=== PATIENT | male | born 1935 | race Caucasian/White ===

== ENCOUNTER → 2016-09-01 | Outpatient (CLI) | payer MEDICARE ==
[~2016-09-01] MED LIST: ALBUAER3 INH; ARGI500T PO; ASPI81TA81 PO; BENZ100 PO; CHEL50TA PO; CHOL50006 PO; CHOL50008 PO; COLA100C3 PO; FLEE10EN RECTAL; FLEEENE3 RECTAL; FOLI1CAP7 PO; HYDR5SYP10 PO; LEVA500T PO; LOVA10TA PO; MAGN100T2 PO; OSEL75 PO; POTA99TA PO; PRED50 PO; UBIQ100C PO; VITA10007 PO; VITATAB11
== END ==
LOC: PLAB 08:27
PROVIDERS: ATTEND Family Medicine
DX: E55.9 Vitamin D deficiency, unspecified (principal)
CPT/HCPCS: 36415; 82306

== ENCOUNTER 2016-09-12 07:07 | Emergency (ER) | payer MEDICARE ==
[~2016-09-12] VITALS: Ht 190.5 cm; Wt 109.0 kg
[~2016-09-12 07:07] MED LIST changes: -ALBUAER3 INH; -BENZ100 PO; -FLEE10EN RECTAL; -FLEEENE3 RECTAL; -HYDR5SYP10 PO; -LEVA500T PO; -OSEL75 PO; -PRED50 PO
[2016-09-12 07:13] VITALS: BP 131/58; PULSE 62; RESP 24; TEMP 99.3; O2SAT 93
[2016-09-12] MEDS ORDERED: PRED50 PO (07:38)
[2016-09-12] MEDS ORDERED: ALBUAER3 INH (07:38)
[2016-09-12] MEDS ORDERED: BENZ100 PO (07:38)
[2016-09-12] MEDS ORDERED: predniSONE 50 MG TAB PO ONE (07:45)
[2016-09-12] MEDS ORDERED: RESP: ALBUTEROL 2.5 MG/IPRATROPIUM 0.5 MG NEB (SCH) NEB ONE (07:45)
--- NOTE | 2016-09-12 07:56 | PD ---
HPI Chief Complaint: Respiratory Symptoms Time Seen by Provider: 07:23 Travel History International Travel<30 days: No Contact w/Intl Traveler<30days: No Traveled to known affect area: No History of Present Illness HPI This is an 80-year-old male who presents to the emergency department with 1 week of shortness of breath and productive cough with yellow sputum, constant, moderate severity, keeping him from sleeping, not improve despite starting prednisone 2 days ago. Patient has not been on any antibiotic. He follows with Dr. Alex lakhani for pulmonary problems but doesn't know what his diagnosis is. In our system in the past he's had a restrictive lung pattern on pulmonary function tests. Patient says that he has chest discomfort and abdominal discomfort every time he coughs but denies any leg swelling or orthopnea. PFSH Past Medical History Arthritis: No Asthma: Yes Autoimmune Disease: No Blood Disorders: No Anxiety: No Depression: No Heart Rhythm Problems: No Cancer: No Cardiac Catheterization: Yes (DR FARLEY) Cardiovascular Problems: Yes (CAD, CARDIAC STENTS) High Cholesterol: No Chemotherapy: No Chest Pain: Yes Congestive Heart Failure: No COPD: No Cerebrovascular Accident: No Diabetes: No Diminished Hearing: No Endocrine: No Gastrointestinal Disorders: Yes (PAST HX GERD) GERD: Yes (occ) Glaucoma: No Genitourinary: Yes (FREQUENCY) Headaches: No Hepatitis: No Hiatal Hernia: No Heparin Induced Thrombocytopen: No Hypertension: No Immune Disorder: No Implanted Vascular Access Dvce: Yes Kidney Stones: No Medical other: Yes (RECENT COURSE OF PREDNISONE --HAVING LUNG STUDIES 03/2016) Musculoskeletal: Yes (LUMBAR DISCOMFORT) Neurologic: No Psychiatric: No Reproductive: No Respiratory: Yes (ENVIRONMENTAL ALLERGIES, CONGESTION) Migraines: No Myocardial Infarction: Yes (REMOTE PAST ) Radiation Therapy: No Renal Failure: No Seizures: No Sickle Cell Disease: No Sleep Apnea: No Thyroid Disease: No Triglycerides - High: Yes Ulcer: No Tetanus Vaccination: Unknown PNEUMOCCOCAL Vaccine (Year): 1 Past Surgical History Abdominal Surgery: Yes (APPENDECTOMY, RIGHT INGUINAL HERNIA REPAIR, LAPROSCOPY WITH COLON RESECTIO) AICD: No Appendectomy: Yes (REMOTE PAST) Arteriovenous Shunt: No Body Medical Devices: x3 CARDIAC STENTS Cardiac Surgery: No Cholecystectomy: No Coronary Stent: Yes (X 3 IN 08/23 DR FARLEY) Ear Surgery: No Endocrine Surgery: No Eye Surgery: Yes (adrianna cataract surgery, LASIK) Genitourinary Surgery: No Gynecologic Surgery: No Insulin Pump: No Joint Replacement: No Neurologic Surgery: No Oral Surgery: No Pacemaker: No Thoracic Surgery: No Other Surgery: Yes (ABD HERNIA REPAIR AND APPY REMOTE PAST) Social History Alcohol Use: Yes (RARELY) Tobacco Use: No Substance Use: No Allergies-Medications (Allergen,Severity, Reaction): Coded Allergies: No Known Allergies (Verified , 09/12/16) Reported Meds & Prescriptions Reported Meds & Active Scripts Active Reported Proair Hfa 8.5 GM Inh (Albuterol Sulfate) 90 Mcg/Act Aer 2 Puff INH Q4-6H PRN 108 mcg/actuation Prednisone 50 Mg Tab 50 Mg PO DAILY Tessalon Perles (Benzonatate) 100 Mg Cap 200 Mg PO TID PRN Zinc (Zinc Gluconate) 50 Mg Tab 50 Cap PO DAILY Vitamin D (Cholecalciferol) 5,000 Unit Tab 5,000 Cap PO DAILY Vitamin B Complex (B-Complex Vitamins) 1 Tab Ubiquinol 100 Mg Cap 100 Cap PO DAILY Potassium 99 Mg Tab 99 Mg PO DAILY Magnesium Citrate 100 Mg Tab 100 Mg PO TID PRN Lovastatin 10 Mg Tab 10 Mg PO DAILY Folic Acid 800 Mcg Cap 800 Mcg PO DAILY Vitamin D3 (Cholecalciferol) 5,000 Unit Tab 5,000 Units PO DAILY Aspir-81 (Aspirin) 81 Mg Tabdr 81 Mg PO DAILY Vitamin C (Ascorbic Acid) 1,000 Mg Tab 1,000 Mg PO Arginine 500 Mg Tab 500 Cap PO DAILY Colace (Docusate Sodium) 100 Mg Cap 100 Mg PO BID Review of Systems Except as stated in HPI: all other systems reviewed are Neg Physical Exam Narrative GENERAL:Well appearing, no acute distress SKIN: Warm and dry. HEAD: Atraumatic. Normocephalic. EYES: Pupils equal and round. No injection or drainage. ENT: Moist mucous membranes NECK: Trachea midline. CARDIOVASCULAR: Regular rate and rhythm. No murmur appreciated. Trace edema. RESPIRATORY: Rales in the left lower lung base, no accessory muscle use, speaking full sentences GASTROINTESTINAL: Abdomen soft, non-tender, nondistended. MUSCULOSKELETAL: No obvious deformities. NEUROLOGICAL: Awake and alert. No obvious cranial nerve deficits. Moving all extremities. PSYCHIATRIC: Appropriate mood and affect; insight and judgment normal. Data Data Last Documented VS Vital Signs Date Time Temp Pulse Resp B/P Pulse Ox O2 Delivery O2 Flow Rate FiO2 2/28/17 07:33 61 18 97 09/12/16 07:13 99.3 131/58 Orders Chest, Pa & Lat (09/12/16 ) Albuterol-Ipratropium Neb (Duoneb Neb) (09/12/16 07:45) Prednisone (Deltasone) (09/12/16 07:45) Influenzae A/B Antigen (09/12/16 07:33) MDM Medical Decision Making Medical Screen Exam Complete: Yes Emergency Medical Condition: Yes Interpretation(s) Temperature is 99.3 Pulse ox oximetry 93-97% Chest x-ray: Interstitial prominence with patchy bilateral airspace disease Differential Diagnosis Bronchitis, pneumonia, influenza, pulmonary fibrosis Narrative Course This is an 80-year-old male who has a history of restrictive lung disease who presents to the emergency department with increasing shortness of breath and cough over the past week not improve despite being on prednisone for 2 days. His oxygen saturation was 97% when I assessed him. He does have some crackles on the left lung base. Influenza test was sent and was positive. Chest x-ray demonstrates bilateral airspace disease. I think he appears well enough to be discharged home. Plan for Tamiflu, antibiotic for possible superimposed pneumonia, and continued prednisone. I asked him to follow up with his primary care physician for recheck later this week. Diagnosis Primary Impression: Influenza, pneumonia Patient Instructions: General Instructions Additional Instructions: If you develop severe chest pain, shortness of breath, sweating, lightheadedness , dizziness or difficulty breathing return to the emergency department immediately. Followup with your primary care physician in 2-3 days if your symptoms are not resolved. Med/Other Pt SpecificInfo: Prescription(s) given Scripts Hydrocodone W/ Homatropine (Hydrocodone/Homatropine 5-1.5 mg/5Ml)1 Syp Syp5 Ml PO Q6HR PRN (COUGH) #100 ML Prov:Marylin Javier MD 09/12/16 Levofloxacin (Levaquin)500 Mg Kzt360 Mg PO DAILY 7 Days Ref 0 Prov:Marylin Javier MD 09/12/16 Oseltamivir (Tamiflu)75 Mg Cap75 Mg PO BID 5 Days Ref 0 Prov:Marylin Javier MD 09/12/16 Disposition: 01 DISCHARGE HOME Condition: Stable Highet,Marylin H. MD Sep 12, 2016 07:56
--- NOTE | 2016-09-12 08:32 | RADHPO ---
EXAM DATE/TIME: 09/12/2016 08:13 [facility] COMPARISON: No previous studies available for comparison. INDICATIONS : Congestion, cough, chest pain, short of breath. MEDICAL HISTORY : Cardiovascular disease. SURGICAL HISTORY : Coronary artery stent. ENCOUNTER: Initial ACUITY: 4 - 6 days PAIN SCORE: 2/10 LOCATION: Bilateral chest FINDINGS: PA and lateral views of the chest demonstrate interstitial prominence. There is patchy alveolar airsp yasmeen disease in the upper lobes and lower lobes. The cardiomediastinal contours are unremarkable. Os seous structures are intact. CONCLUSION: 1. Interstitial prominence with patchy bilateral airspace disease. Acute on chronic condition cannot be excluded. Jacinto Gabriel MD on September 12, 2016 at 8:25 Board Certified Radiologist. This report was verified electronically.
[2016-09-12] MEDS ORDERED: HYDR5SYP10 PO (08:47)
[2016-09-12] MEDS ORDERED: LEVA500T PO (08:47)
[2016-09-12] MEDS ORDERED: OSEL75 PO (08:47)
== END 2016-09-12 09:04 | disposition home or self-care (01) ==
LOC: PHED 07:07
DX: J09.X2 Influenza due to identified novel influenza A virus with other respiratory manifestations (principal); J18.9 Pneumonia, unspecified organism
CPT/HCPCS: 71020; 87804; 94664; 99285; J7512

== ENCOUNTER → 2016-09-21 | Outpatient (CLI) | payer MEDICARE ==
[~2016-09-21] MED LIST changes: +ALBUAER3 INH; +BENZ100 PO; +FLEE10EN RECTAL; +FLEEENE3 RECTAL; +HYDR5SYP10 PO; +LEVA500T PO; +OSEL75 PO; +PRED50 PO
== END ==
LOC: PLAB 10:09
PROVIDERS: ATTEND Internal Medicine
DX: J20.9 Acute bronchitis, unspecified (principal)
CPT/HCPCS: 87070; 87205

== ENCOUNTER 2016-10-31 09:41 | Emergency (ER) | payer MEDICARE ==
[~2016-10-31] VITALS: Ht 190.5 cm; Wt 107.7 kg
[~2016-10-31 09:41] MED LIST changes: -FLEE10EN RECTAL; -FLEEENE3 RECTAL
[2016-10-31 09:47] VITALS: BP 130/78; PULSE 81; RESP 18; TEMP 97.7; O2SAT 96
[2016-10-31] MEDS ORDERED: FLEEENE3 RECTAL (10:03)
[2016-10-31] MEDS ORDERED: FLEE10EN RECTAL (10:04)
--- NOTE | 2016-10-31 10:05 | PD ---
HPI Chief Complaint: GI Complaint Time Seen by Provider: 09:51 Travel History International Travel<30 days: No Contact w/Intl Traveler<30days: No Traveled to known affect area: No History of Present Illness HPI 80-year-old male presents with constipation for the past 5 days. He denies any abdominal pain, nausea, vomiting or other concurrent complaints. He has taken stool softener and magnesium citrate without relief. He has not discussed this with his primary care physician or his colorectal specialist since he was here in the emergency department before for constipation. He notes last time he had a colonoscopy right before he was constipated. PFSH Past Medical History Arthritis: No Asthma: Yes Autoimmune Disease: No Blood Disorders: No Anxiety: No Depression: No Heart Rhythm Problems: No Cancer: No Cardiac Catheterization: Yes (DR FARLEY) Cardiovascular Problems: Yes (CAD, CARDIAC STENTS) High Cholesterol: No Chemotherapy: No Chest Pain: Yes Congestive Heart Failure: No COPD: No Cerebrovascular Accident: No Diabetes: No Diminished Hearing: No Endocrine: No Gastrointestinal Disorders: Yes (PAST HX GERD) GERD: Yes (occ) Glaucoma: No Genitourinary: Yes (FREQUENCY) Headaches: No Hepatitis: No Hiatal Hernia: No Heparin Induced Thrombocytopen: No Hypertension: No Immune Disorder: No Implanted Vascular Access Dvce: Yes Kidney Stones: No Musculoskeletal: Yes (LUMBAR DISCOMFORT) Neurologic: No Psychiatric: No Reproductive: No Respiratory: Yes (ENVIRONMENTAL ALLERGIES, CONGESTION) Migraines: No Myocardial Infarction: Yes (REMOTE PAST ) Radiation Therapy: No Renal Failure: No Seizures: No Sickle Cell Disease: No Sleep Apnea: No Thyroid Disease: No Triglycerides - High: Yes Ulcer: No PNEUMOCCOCAL Vaccine (Year): 1 Past Surgical History Abdominal Surgery: Yes (APPENDECTOMY, RIGHT INGUINAL HERNIA REPAIR, LAPROSCOPY WITH COLON RESECTIO) AICD: No Appendectomy: Yes (REMOTE PAST) Arteriovenous Shunt: No Body Medical Devices: x3 CARDIAC STENTS Cardiac Surgery: No Cholecystectomy: No Coronary Stent: Yes (X 3 IN 08/23 DR FARLEY) Ear Surgery: No Endocrine Surgery: No Eye Surgery: Yes (adrianna cataract surgery, LASIK) Genitourinary Surgery: No Gynecologic Surgery: No Insulin Pump: No Joint Replacement: No Neurologic Surgery: No Oral Surgery: No Pacemaker: No Thoracic Surgery: No Other Surgery: Yes (ABD HERNIA REPAIR AND APPY REMOTE PAST) Social History Alcohol Use: Yes (RARELY) Tobacco Use: No Substance Use: No Allergies-Medications (Allergen,Severity, Reaction): Coded Allergies: No Known Allergies (Verified , 10/31/16) Reported Meds & Prescriptions Reported Meds & Active Scripts Active Fleet Bisacodyl Enema (Bisacodyl) 10 Mg/37 Ml Enem 37 Ml RECTAL ONCE PRN Reported Proair Hfa 8.5 GM Inh (Albuterol Sulfate) 90 Mcg/Act Aer 2 Puff INH Q4-6H PRN 108 mcg/actuation Ubiquinol 100 Mg Cap 100 Cap PO DAILY Magnesium Citrate 100 Mg Tab 100 Mg PO TID PRN Lovastatin 10 Mg Tab 10 Mg PO DAILY Colace (Docusate Sodium) 100 Mg Cap 100 Mg PO BID Review of Systems Except as stated in HPI: all other systems reviewed are Neg Physical Exam Narrative GENERAL: Well-nourished, well-developed patient. Well-appearing SKIN: Warm and dry. HEAD: Normocephalic and atraumatic. EYES: No injection or drainage. ENT: No nasal drainage noted. NECK: Supple, trachea midline. CARDIOVASCULAR: Regular rate and rhythm RESPIRATORY: no increased effort. No accessory muscle use. GASTROINTESTINAL: Abdomen soft, non-tender, nondistended. RECTAL EXAM: Performed with coke drawer hand and after permission. No large external hemorrhoid or fissure, stool is brown, non-bloody without fecal impaction NEUROLOGICAL: Awake and alert. Moves all extremities. Normal speech. Data Data Last Documented VS Vital Signs Date Time Temp Pulse Resp B/P Pulse Ox O2 Delivery O2 Flow Rate FiO2 10/31/16 09:47 97.7 81 18 130/78 96 MDM Medical Decision Making Medical Screen Exam Complete: Yes Emergency Medical Condition: Yes Medical Record Reviewed: Yes (pmh confirmed) Differential Diagnosis Constipation, impaction, doubt obstruction Narrative Course Patient without impaction on rectal exam. Patient has no abdominal pain, vomiting or signs of obstruction. Patient agrees to [id number] constipation treatment and was given prescription for enema to use additionally that is also available [id number]. He agrees to this plan of care with close follow-up with his specialist Diagnosis Primary Impression: Constipation Qualified Code: K59.00 - Constipation, unspecified constipation type Patient Instructions: General Instructions Additional Instructions: follow with your colorectal specialist tommorrow, return as needed, use enema as directed Med/Other Pt SpecificInfo: Prescription(s) given Scripts Bisacodyl Enema (Fleet Bisacodyl Enema)10 Mg/37 Ml Enem37 Ml RECTAL ONCE PRN ( CONSTIPATION) #1 BOTTLE Ref 0 Prov:Michelle Simpson MD 10/31/16 Disposition: 01 DISCHARGE HOME Condition: Stable Michelle Simpson MD Oct 31, 2016 10:05
== END 2016-10-31 10:17 | disposition home or self-care (01) ==
LOC: PHED 09:41
DX: K59.00 Constipation, unspecified (principal); J45.909 Unspecified asthma, uncomplicated; Z95.5 Presence of coronary angioplasty implant and graft; I25.10 Atherosclerotic heart disease of native coronary artery without angina pectoris; I25.2 Old myocardial infarction
CPT/HCPCS: 99283

== ENCOUNTER → 2017-02-15 | Outpatient (CLI) | payer MEDICARE ==
[~2017-02-15] MED LIST changes: -ARGI500T PO; -ASPI81TA81 PO; -BENZ100 PO; -CHEL50TA PO; -CHOL50006 PO; -CHOL50008 PO; +FLEE10EN RECTAL; -FOLI1CAP7 PO; -HYDR5SYP10 PO; -LEVA500T PO; -OSEL75 PO; -POTA99TA PO; -PRED50 PO; -VITA10007 PO; -VITATAB11
[2017-02-15 13:44] LABS: ANION GAP 8 MEQ/L (5-15); AST (GOT) 19 U/L (15-37); BICARBONATE 22.6 MEQ/L (21.0-32.0); BLOOD UREA NITROGEN 14 MG/DL (7-18); CHLORIDE 110 MEQ/L (98-107); GLOMERULAR FILTRATION RATE 87 ML/MIN (>89); GLUCOSE,FASTING 92 MG/DL (74-99); POTASSIUM 3.7 MEQ/L (3.5-5.1); SODIUM (NA) 141 MEQ/L (136-145)
[2017-02-15 14:00] LABS: ALKALINE PHOSPHATASE 41 U/L (45-117); ALT (GPT) 28 U/L (12-78); HDL CHOLESTEROL 57.3 MG/DL (40.0-60.0); LDL CHOLESTEROL 71 MG/DL (0-99); LDL CHOLESTEROL DIRECT 79 MG/DL (0-99)
[2017-02-15 14:03] LABS: CREATINE KINASE 43 U/L (39-308)
== END ==
LOC: PLAB 07:58
PROVIDERS: ATTEND Internal Medicine Interventional Cardiology
DX: R06.02 Shortness of breath (principal); E78.5 Hyperlipidemia, unspecified; Z79.899 Other long term (current) drug therapy
CPT/HCPCS: 36415; 80053; 80061; 82248; 82550; 83721

== ENCOUNTER 2017-03-13 09:12 | Day surgery (SDC) | payer MEDICARE ==
[~2017-03-13] VITALS: Ht 190.5 cm; Wt 107.9 kg
[2017-03-13] VITALS (8 sets, daily range): BP systolic 107–131; BP diastolic 59–75; PULSE 18–64; RESP 18; TEMP 97.3–97.8; O2SAT 94–96
[2017-03-13] MEDS ORDERED: IOHEXOL 350 MG/ML 100 ML BTL (for Cath Lab) OTHER ONE (09:13)
[2017-03-13] MEDS ORDERED: ASPIRIN 81 MG CHEW TAB PO ONE (10:00)
[2017-03-13] MEDS ORDERED: NS 1000P @30 MLS/HR (KVO) IV SCH (10:00)
[2017-03-13] MEDS ORDERED: VITA100T50 (10:04)
[2017-03-13] MEDS ORDERED: VITA250T3 PO (10:04)
[2017-03-13] MEDS ORDERED: VITA400C5 (10:04)
[2017-03-13] MEDS ORDERED: ROSU10 PO (10:04)
[2017-03-13] MEDS ORDERED: VITA1000 PO (10:04)
[2017-03-13] MEDS ORDERED: ASPI81CH CHEW (10:04)
[2017-03-13 10:08] LABS: AUTOMATED NEUTROPHIL # 3.7 TH/MM3 (1.8-7.7); BASOPHIL # 0.2 TH/MM3 (0-0.2); BASOPHIL % 2.4 % (0.0-2.0); EOSINOPHIL # 0.3 TH/MM3 (0-0.4); EOSINOPHIL % 5.2 % (0.0-4.0); HEMATOCRIT 46.9 % (39.0-51.0); HEMO FLAGS DIFF FINAL; LYMPH % 24.7 % (9.0-44.0); LYMPHOCYTE # 1.5 TH/MM3 (1.0-4.8); MEAN CELL VOLUME 92.2 FL (80.0-100.0); MEAN CORPUSCULAR HEMOGLOBIN 30.6 PG (27.0-34.0); MEAN CORPUSCULAR HGB CONC 33.2 % (32.0-36.0); NEUT % 58.7 % (16.0-70.0); PLATELET COUNT 153 TH/MM3 (150-450); RED BLOOD COUNT 5.09 MIL/MM3 (4.50-5.90); RED CELL DISTRIBUTION WIDTH 13.3 % (11.6-17.2); WHITE BLOOD COUNT 6.2 TH/MM3 (4.0-11.0)
[2017-03-13 10:16] LABS: PROTHROMBIN TIME - PATIENT 11.4 SEC (9.8-11.6)
[2017-03-13 10:22] LABS: BICARBONATE 26.3 MEQ/L (21.0-32.0)
[2017-03-13] MEDS ORDERED: HEPARIN-NS/PF INJ 1,000 ML ONE (11:35)
[2017-03-13] MEDS ORDERED: HEPARIN SODIUM - IV 10,000 UNITS/10 ML VIAL ONE (12:17)
[2017-03-13] MEDS ORDERED: CLOPIDOGREL 300 MG TAB ONE (12:32)
[2017-03-13] MEDS ORDERED: TIROFIBAN INFUSION INJ 250 ML IV ONE (12:33)
[2017-03-13] MEDS ORDERED: ASPIRIN 81 MG CHEW TAB ONE (12:36)
[2017-03-13] MEDS: TIROFIBAN INFUSION INJ 250 ML IV SCH ×2 (12:41→22:10)
[2017-03-13] MEDS ORDERED: SODIUM CHLORIDE 0.9% FLUSH 10 ML FLUSH PRN (12:45)
[2017-03-13] MEDS ORDERED: CLOPIDOGREL 300 MG TAB PO ONE (12:45)
[2017-03-13] MEDS ORDERED: MISC INFORMATION XX ONE (12:45)
[2017-03-13] MEDS ORDERED: BACITRACIN OINT 0.9 GM PKT TOP ONE (12:45)
[2017-03-13] MEDS: SODIUM CHLORIDE 0.9% FLUSH 10 ML FLUSH SCH (20:34)
--- NOTE | 2017-03-13 22:44 | MA ---
cc: ELEUTERIO FARLEY M.D. DATE: 03/13/2017 PROCEDURE PERFORMED: Right heart catheterization. Left heart catheterization. Left ventriculography. Coronary angiography. PCI bare metal stent of the mid left circumflex vessel. INDICATION: Coronary artery disease, new onset. Severe dyspnea on exertion. CHF. Moderate size fixed defect, reversible defect in the anterior apical wall, apical hypokinesis, decreased in ejection fraction on gated SPECT from 45% to 41%, anginal equivalent, unstable angina. [place] [employer] Society, class 3 angina, [place] Heart Association, class 3 to 4 congestive heart failure. Peripheral vascular disease, history of myocardial infarction, dyspnea. PROCEDURE: The patient was brought to the Cardiac Catheterization Laboratory, prepped and draped in the usual sterile fashion. 10 cc of 1% lidocaine was used to locally anesthetize the right common femoral artery. A 4 Irish sheath was placed in the right common femoral artery. 5 Irish sheath in the right common femoral vein. RIGHT HEART CATHETERIZATION: Right heart catheterization was performed first with the following findings: The pulmonary capillary wedge pressure was 13/12/12, PA pressure 33/11/21. RV pressure 33/2/7. RA pressure 8/7/5. Femoral artery sat on room air 98%, pulmonary artery sat on room air 79.3%, RA sat on room air 78.4%. Cardiac output by RUTH 7.1 liters per minute. Cardiac index by RUTH 3.0 liters per meter square per minute, SVR was 986.7 dynes. LEFT HEART CATHETERIZATION: Left heart catheterization was then performed with a 4-Irish JR-4 and JL-5 diagnostic catheter with the following findings: The LV pressure 135/5/8. Ejection fraction is 45 to 50%. Apical wall is severely hypokinetic. Right coronary artery is dominant, has mild diffuse disease in the proximal segment, up to 20% angiographically, mild diffuse disease in the mid segment up to 30% angiographically. The left main coronary artery has no significant disease angiographically. The left circumflex vessel has a complex 90% stenosis spanning a medium size marginal vessel which has no ostial disease. Beyond the lesion there is a second obtuse marginal vessel that is medium is size coming off the mid AV groove left circ and then they are two small posterolateral arteries distally. The LAD is transapical. Stents in the proximal segment are widely patent. There is mild In-stent stenosis in the proximal segment up to 20% angiographically. First and second diagonal arteries are small to medium-sized vessels with no significant obstructive disease. 6-Irish sheath was exchanged for the 4-Irish sheath, 70 units per kilo of heparin, ACT 275, 6 Irish XP 4.0 guide, 0.014 Prowater guide wire and a 309 Integrity stent was used to directly stent the mid left circumflex vessel, one inflation at 9 atmospheres for 20 seconds. The stenosis went from 90% to 0% with TAWNYA-3 flow. Note: There was no jailing of the marginal vessel with TAWNYA-3 flow into the vessel. Also note, post procedure the vessel diameter of the first and second obtuse marginal vessel improved. CONCLUSION: New onset cardiac symptoms of severe dyspnea on exertion, anginal equivalent. [place] [employer], class 3 angina, [place] Heart Association class 3 to 4 congestive heart failure. Culprit 90% stenosis in the mid left circumflex vessel supplying two medium size marginal vessels and three distal posterolateral arteries. Low normal to LV systolic function, ejection fraction 45 to 50% with severe hypokinesis of the apex. Mildly elevated right heart pressures as detailed above. Successful direct PCI bare metal stent of the mid left circumflex vessel from 90% to 0% with TAWNYA-3 flow. Recommend Plavix 600 milligrams p.o. load and then 75 milligrams a day for 12 to 15 months. Aspirin 162 milligrams daily. Aggrastat drip per protocol. Continue Crestor 10 milligrams daily. Eleuterio Farley MD Gertrude/LUIS DANIEL /12:34 PM /10:06 PM
[2017-03-14] VITALS (13 sets, daily range): BP systolic 99–131; BP diastolic 58–67; PULSE 61–80; RESP 16; TEMP 97.6–98.8; O2SAT 94–98
[2017-03-14] MEDS ORDERED: ONDANSETRON HCL 4 MG/2 ML VIAL IV PUSH PRN (05:45)
[2017-03-14 06:53] LABS: BASOPHIL # 0.1 TH/MM3 (0-0.2); BASOPHIL % 0.9 % (0.0-2.0); EOSINOPHIL # 0.2 TH/MM3 (0-0.4); EOSINOPHIL % 2.3 % (0.0-4.0); HEMATOCRIT 45.7 % (39.0-51.0); HEMO FLAGS DIFF FINAL; LYMPHOCYTE # 0.8 TH/MM3 (1.0-4.8); MEAN CELL VOLUME 92.6 FL (80.0-100.0); MEAN CORPUSCULAR HEMOGLOBIN 31.8 PG (27.0-34.0); MEAN CORPUSCULAR HGB CONC 34.3 % (32.0-36.0); MONO % 7.4 % (0.0-8.0); NEUT % 78.4 % (16.0-70.0); PLATELET COUNT 140 TH/MM3 (150-450); RED BLOOD COUNT 4.93 MIL/MM3 (4.50-5.90); RED CELL DISTRIBUTION WIDTH 13.3 % (11.6-17.2); WHITE BLOOD COUNT 7.6 TH/MM3 (4.0-11.0)
[2017-03-14 07:04] LABS: BICARBONATE 25.7 MEQ/L (21.0-32.0); POTASSIUM 3.7 MEQ/L (3.5-5.1)
[2017-03-14] MEDS ORDERED: CLOPIDOGREL 75 MG TAB PO SCH (09:00)
[2017-03-14] MEDS ORDERED: ASPIRIN 81 MG CHEW TAB PO SCH (09:00)
[2017-03-14] MEDS: SODIUM CHLORIDE 0.9% FLUSH 10 ML FLUSH SCH (10:04)
[2017-03-14] MEDS ORDERED: PLAV75TA29 PO (11:15)
--- NOTE | 2017-03-14 16:58 | EKG ---
Date Performed: 03/13/2017 Time Performed: 13:08:02 PTAGE: 81 years EKG: Sinus rhythm with PAC(s) with borderline 1st degree A-V block. Severe right axis deviation Right bundle branch bl ock Since previous tracing, no significant change noted Abnormal ECG PREVIOUS TRACING : 02/18/2016 06.52 DOCTOR: Karen Viera Interpretating Date/Time 03/14/2017 16:57:27
--- NOTE | 2017-03-14 16:58 | EKG ---
Date Performed: 03/14/2017 Time Performed: 06:24:24 PTAGE: 81 years EKG: Sinus rhythm INDETERMINATE AXIS RIGHT BUNDLE BRANCH BLOCK POSSIBLE ANTEROSEPTAL MYOCARDIAL INFARCTION , OF INDETE RMINATE AGE Since previous tracing, no significant change noted ABNORMAL ECG PREVIOUS TRACING : 03/13/2017 13.08 DOCTOR: Karen Viera Interpretating Date/Time 03/14/2017 16:57:38
== END 2017-03-14 11:51 | disposition home or self-care (01) ==
LOC: HDIC 09:12 → HDOC 09:12 → HDIC 15:17 → HCIN 15:17 → HCIS 16:08 → HDOC 03-14 11:51
PROVIDERS: ATTEND Internal Medicine Interventional Cardiology
DX: I25.110 Atherosclerotic heart disease of native coronary artery with unstable angina pectoris (principal); I50.9 Heart failure, unspecified; I25.2 Old myocardial infarction; I73.9 Peripheral vascular disease, unspecified; I65.29 Occlusion and stenosis of unspecified carotid artery; J84.10 Pulmonary fibrosis, unspecified; E78.00 Pure hypercholesterolemia, unspecified
CPT/HCPCS: 80048; 82550; 82810; 85002; 85025; 85610; 92928; 93005; 93460; C1769; C1876; C1887; C1893; J1644; J2405; J3246; J7030; 85347; Q9967

== ENCOUNTER 2017-04-19 16:52 | Emergency (ER) | payer MEDICARE ==
[~2017-04-19] VITALS: Ht 190.5 cm; Wt 108.0 kg
[~2017-04-19 16:52] MED LIST changes: -ALBUAER3 INH; +ASPI81CH CHEW; -COLA100C3 PO; -FLEE10EN RECTAL; -LOVA10TA PO; -MAGN100T2 PO; +PLAV75TA29 PO; +ROSU10 PO; -UBIQ100C PO; +VITA1000 PO; +VITA100T50; +VITA250T3 PO; +VITA400C5
[2017-04-19 16:54] VITALS: BP 144/71; PULSE 64; RESP 16; TEMP 97.6; O2SAT 95
[2017-04-19] MEDS ORDERED: ALBUAER3 INH (17:12)
--- NOTE | 2017-04-19 17:19 | PD ---
HPI Chief Complaint: Complaint Time Seen by Provider: 17:06 Travel History International Travel<30 days: No Contact w/Intl Traveler<30days: No Traveled to known affect area: No History of Present Illness HPI This patient urinated a short while before coming to the emergency room and noticed blood in it. When he urinated this morning he was fine. He has no history of hematuria. He takes both aspirin and Plavix and had a cardiac stent placed 3 weeks ago. No presyncopal symptoms. Symptoms severity is mild. No alleviating factors. duration 1 hour PFSH Past Medical History Arthritis: No Asthma: Yes Autoimmune Disease: No Blood Disorders: No Anxiety: No Depression: No Heart Rhythm Problems: No Cancer: No Cardiac Catheterization: Yes (DR FARLEY) Cardiovascular Problems: Yes (CAD, CARDIAC STENTS) High Cholesterol: No Chemotherapy: No Chest Pain: Yes Congestive Heart Failure: No COPD: No Cerebrovascular Accident: No Coronary Artery Disease: Yes Diabetes: No Diminished Hearing: No Endocrine: No Gastrointestinal Disorders: Yes (PAST HX GERD) GERD: Yes Glaucoma: No Genitourinary: Yes (FREQUENCY) Headaches: No Hepatitis: No Hiatal Hernia: No Heparin Induced Thrombocytopen: No Hypertension: No Immune Disorder: No Implanted Vascular Access Dvce: Yes Kidney Stones: No Musculoskeletal: Yes (LUMBAR DISCOMFORT) Neurologic: No Psychiatric: No Reproductive: No Respiratory: Yes (pulmonary fibrosis) Migraines: No Myocardial Infarction: Yes Radiation Therapy: No Renal Failure: No Seizures: No Sickle Cell Disease: No Sleep Apnea: No Thyroid Disease: No Triglycerides - High: Yes Ulcer: No PNEUMOCCOCAL Vaccine (Year): 1 Past Surgical History Abdominal Surgery: Yes (APPENDECTOMY, RIGHT INGUINAL HERNIA REPAIR, LAPROSCOPY WITH COLON RESECTIO) AICD: No Appendectomy: Yes (REMOTE PAST) Arteriovenous Shunt: No Body Medical Devices: x3 CARDIAC STENTS Cardiac Surgery: No Cholecystectomy: No Coronary Stent: Yes (X 3 IN 08/23, x 1> 03/2017) Ear Surgery: No Endocrine Surgery: No Eye Surgery: Yes (adrianna cataract surgery, LASIK) Genitourinary Surgery: No Gynecologic Surgery: No Insulin Pump: No Joint Replacement: No Neurologic Surgery: No Oral Surgery: No Pacemaker: No Thoracic Surgery: No Other Surgery: Yes (ABD HERNIA REPAIR AND APPY REMOTE PAST) Social History Alcohol Use: Yes (RARELY) Tobacco Use: No Substance Use: No Allergies-Medications (Allergen,Severity, Reaction): Coded Allergies: No Known Allergies (Verified , 04/19/17) Reported Meds & Prescriptions Reported Meds & Active Scripts Active Reported Proair Hfa 8.5 GM Inh (Albuterol Sulfate) 90 Mcg/Act Aer 2 Puff INH QHS PRN 108 mcg/actuation Plavix (Clopidogrel Bisulfate) 75 Mg Tab 75 Mg PO DAILY Vitamin C (Ascorbic Acid) 250 Mg Tab 250 Mg PO E-400 (Vitamin E) 400 Unit Cap Vitamin K (Phytonadione) 100 Mcg Tab Vitamin D-1000 (Cholecalciferol) 1,000 Unit Tab 1,000 Units PO DAILY Crestor (Rosuvastatin Calcium) 10 Mg Tab 10 Mg PO DAILY Aspirin 81 Mg Chew 81 Mg CHEW DAILY Review of Systems General / Constitutional: No: Fever Eyes: No: Visual changes HENT: No: Headaches Cardiovascular: No: Chest Pain or Discomfort Respiratory: No: Shortness of Breath Gastrointestinal: No: Abdominal Pain Genitourinary: Positive: Hematuria, No: Dysuria Musculoskeletal: No: Pain Skin: No Rash Neurologic: No: Weakness Psychiatric: No: Depression Endocrine: No: Polydipsia Hematologic/Lymphatic: No: Easy Bruising Physical Exam Narrative GASTROINTESTINAL: Abdomen soft, non-tender, nondistended. Positive bowel sounds. No hepato-splenomegaly, or palpable masses. No guarding. SKIN: Focused skin assessment reveals no rash or ulcers. Skin is warm and dry. Palpation shows no induration or nodules. Psych: Normal mood and affect. Normal insight and judgment. : Circumcised penis without active bleeding Data Data Last Documented VS Vital Signs Date Time Temp Pulse Resp B/P (MAP) Pulse Ox O2 Delivery O2 Flow Rate FiO2 04/19/17 16:54 97.6 64 16 144/71 (95) 95 Orders Orders Urinalysis - C+S If Indicated (04/19/17 17:00) Urine Culture (04/19/17 17:02) Labs Laboratory Tests Test 04/19/17 17:02 Urine Color RED Urine Turbidity CLOUDY Urine pH 6.0 Urine Specific [place] 1.020 Urine Protein 300 OR GREATER mg/dL Urine Glucose (UA) NEG mg/dL Urine Ketones NEG mg/dL Urine Occult Blood LARGE Urine Nitrite NEG Urine Bilirubin NEG Urine Leukocyte Esterase NEG Urine RBC INNUM /hpf Urine WBC 9-14 /hpf Urine Squamous Epithelial Cells 0-5 /hpf Urine Amorphous Sediment FEW Urine Bacteria RARE /hpf Microscopic Urinalysis Comment CULTURE INDICATED MDM Medical Decision Making Medical Screen Exam Complete: Yes Emergency Medical Condition: Yes Medical Record Reviewed: Yes Differential Diagnosis Medication side effect, urinary polyps, bladder cancer Narrative Course I have reviewed the patient's electronic medical record. Urinalysis shows innumerable red cells We had a lengthy discussion. He has new-onset of hematuria over 1 hour but is taking aspirin and Plavix and has had stent placement within a month. He should discuss with his family physician and cell feed department supervisor as well as obtain urology follow-up. Diagnosis Primary Impression: Hematuria Qualified Codes: R31.9 - Hematuria, unspecified Additional Impression: Medication side effect Qualified Codes: T88.7XXA - Unspecified adverse effect of drug or medicament, initial encounter Additional Instructions: Follow up with urologist Discuss your hematuria in the setting of aspirin/Plavix therapy with your family physician and cell feed department supervisor Med/Other Pt SpecificInfo: Other Disposition: 01 DISCHARGE HOME Condition: Stable Juanjo Grimm MD Apr 19, 2017 17:19
[2017-04-19 17:26] LABS: BLOOD, URINE LARGE (NEG); GLUCOSE,URINE NEG (NEG); KETONE, URINE NEG (NEG); NITRITE,URINE NEG (NEG)
[2017-04-19 17:29] LABS: URINE COLOR RED (YELLW/STRAW)
[2017-04-19 17:31] LABS: BACTERIA, URINE RARE /hpf; COMMENT (UR) CULTURE INDICATED; CULTURE IF INDICATED CULTURE INDICATED; RBC, URINE INNUM /hpf (0-3); SQUAMOUS EPITHELIAL CELL URINE 0-5 /hpf (0-5)
== END 2017-04-19 17:50 | disposition home or self-care (01) ==
LOC: PHED 16:52
DX: R31.9 Hematuria, unspecified (principal); T88.7XXA Unspecified adverse effect of drug or medicament, initial encounter; I25.10 Atherosclerotic heart disease of native coronary artery without angina pectoris; I25.2 Old myocardial infarction; Z95.5 Presence of coronary angioplasty implant and graft
CPT/HCPCS: 81001; 87086; 99282

== ENCOUNTER → 2017-04-20 | Outpatient (CLI) | payer MEDICARE ==
[~2017-04-20] MED LIST changes: +ALBUAER3 INH
[2017-04-20 13:25] LABS: BICARBONATE 28.2 MEQ/L (21.0-32.0); POTASSIUM 3.8 MEQ/L (3.5-5.1)
== END ==
LOC: PLAB 11:13
PROVIDERS: ATTEND Urology
DX: N40.1 Benign prostatic hyperplasia with lower urinary tract symptoms (principal); R31.9 Hematuria, unspecified
CPT/HCPCS: 36415; 80048; 84153

== ENCOUNTER 2017-05-22 09:15 | Emergency (ER) | payer MEDICARE ==
[~2017-05-22] VITALS: Ht 190.5 cm; Wt 109.0 kg
[~2017-05-22 09:15] MED LIST changes: +ASPI-516 CHEW; -ASPI81CH CHEW; +FINA5TAB2 PO
[2017-05-22 09:20] VITALS: BP 135/70; PULSE 70; RESP 28; TEMP 97.6; O2SAT 96
--- NOTE | 2017-05-22 09:33 | PD ---
HPI Chief Complaint: Laceration/Skin Injury Time Seen by Provider: 09:28 Travel History International Travel<30 days: No Contact w/Intl Traveler<30days: No Traveled to known affect area: No History of Present Illness HPI 81-year-old male presents to emergency department complaint of a laceration to his right hand after a glass cut him while doing dishes today. Denies being up- to-date on tetanus vaccinations. Denies paresthesias, loss of sensation, decreased range motion, decreased strength to the affected hand. Has applied pressure to control bleeding. Bleeding is controlled. Is not taking any medications to alleviate symptoms. Symptoms are mild in severity. Patient reports taking Plavix. Has no other medical complaints. No known allergies. No other modifying factors or associated signs and symptoms. PFSH Past Medical History Arthritis: No Asthma: Yes Autoimmune Disease: No Blood Disorders: No Anxiety: No Depression: No Heart Rhythm Problems: No Cancer: No Cardiac Catheterization: Yes (DR FARLEY) Cardiovascular Problems: Yes (CAD, CARDIAC STENTS) High Cholesterol: No Chemotherapy: No Chest Pain: Yes Congestive Heart Failure: No COPD: No Cerebrovascular Accident: No Coronary Artery Disease: Yes Diabetes: No Diminished Hearing: No Endocrine: No Gastrointestinal Disorders: Yes (PAST HX GERD) GERD: Yes Glaucoma: No Genitourinary: Yes (FREQUENCY) Headaches: No Hepatitis: No Hiatal Hernia: No Heparin Induced Thrombocytopen: No Hypertension: No Immune Disorder: No Implanted Vascular Access Dvce: Yes Kidney Stones: No Medical other: Yes (RECENT COURSE OF PREDNISONE --HAVING LUNG STUDIES 03/2016) Musculoskeletal: Yes (LUMBAR DISCOMFORT) Neurologic: No Psychiatric: No Reproductive: No Respiratory: Yes (pulmonary fibrosis) Migraines: No Myocardial Infarction: Yes Radiation Therapy: No Renal Failure: No Seizures: No Sickle Cell Disease: No Sleep Apnea: No Thyroid Disease: No Triglycerides - High: Yes Ulcer: No Tetanus Vaccination: Unknown PNEUMOCCOCAL Vaccine (Year): 1 Past Surgical History Abdominal Surgery: Yes (APPENDECTOMY, RIGHT INGUINAL HERNIA REPAIR, LAPROSCOPY WITH COLON RESECTIO) AICD: No Appendectomy: Yes (REMOTE PAST) Arteriovenous Shunt: No Body Medical Devices: x3 CARDIAC STENTS Cardiac Surgery: No Cholecystectomy: No Coronary Stent: Yes (X 3 IN 08/23, x 1> 03/2017) Ear Surgery: No Endocrine Surgery: No Eye Surgery: Yes (adrianna cataract surgery, LASIK) Genitourinary Surgery: No Gynecologic Surgery: No Insulin Pump: No Joint Replacement: No Neurologic Surgery: No Oral Surgery: No Pacemaker: No Thoracic Surgery: No Other Surgery: Yes (ABD HERNIA REPAIR AND APPY REMOTE PAST) Social History Alcohol Use: Yes (RARELY) Tobacco Use: No Substance Use: No Allergies-Medications (Allergen,Severity, Reaction): Coded Allergies: No Known Allergies (Verified Adverse Reaction, Unknown, 05/22/17) Reported Meds & Prescriptions Reported Meds & Active Scripts Active Finasteride 5 Mg Tab 5 Mg PO DAILY Do not crush. Reported Proair Hfa 8.5 GM Inh (Albuterol Sulfate) 90 Mcg/Act Aer 2 Puff INH QHS PRN 108 mcg/actuation Plavix (Clopidogrel Bisulfate) 75 Mg Tab 75 Mg PO DAILY Vitamin C (Ascorbic Acid) 250 Mg Tab 250 Mg PO E-400 (Vitamin E) 400 Unit Cap Vitamin K (Phytonadione) 100 Mcg Tab Vitamin D-1000 (Cholecalciferol) 1,000 Unit Tab 1,000 Units PO DAILY Crestor (Rosuvastatin Calcium) 10 Mg Tab 10 Mg PO DAILY Aspirin 81 Mg Chew 81 Mg CHEW DAILY Review of Systems Except as stated in HPI: all other systems reviewed are Neg Physical Exam Narrative GENERAL: Well-nourished, well-developed elderly, male patient, in no acute distress SKIN: Warm and dry. 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 HEAD: Atraumatic. Normocephalic. EYES: Pupils equal and round. No scleral icterus. No injection or drainage. ENT: Mucosa pink and moist. Airway patent. NECK: Trachea midline. CARDIOVASCULAR: Regular rate. RESPIRATORY: No accessory muscle use. GASTROINTESTINAL: Rounded. MUSCULOSKELETAL: No obvious deformities. No clubbing. No cyanosis. No edema. NEUROLOGICAL: Awake and alert. Oriented 3. No obvious cranial nerve deficits. Motor grossly within normal limits. Normal speech. PSYCHIATRIC: Appropriate mood and affect; insight and judgment normal. Data Data Last Documented VS Vital Signs Date Time Temp Pulse Resp B/P (MAP) Pulse Ox O2 Delivery O2 Flow Rate FiO2 05/22/17 09:20 97.6 70 28 135/70 (91) 96 Orders Orders Lidocaine 1% Inj (50 Ml) (Xylocaine 1% I (05/22/17 09:45) Tetanus/Diphtheria Tox Adult (Tetanus/Di (05/22/17 09:45) Ed Discharge Order (05/22/17 10:02) [facility] Medical Decision Making Medical Screen Exam Complete: Yes Emergency Medical Condition: Yes Medical Record Reviewed: Yes Differential Diagnosis Laceration, skin avulsion, abrasion Narrative Course 81-year-old male with right hand laceration. Tetanus updated in the ER. See my procedure note for laceration repair. Instructed patient to return to the emergency department or follow-up with primary care provider in 7-10 days for suture removal. Discharge patient to take Tylenol as directed and as needed for pain and inflammation. Instructed patient to follow up with primary care provider. Patient verbalizes understanding and agreement with treatment plan. Patient is medically cleared and stable for discharge. Discussed reasons to return to the emergency department. Patient agrees with treatment plan. The patients vital signs are stable and the patient is stable for outpatient follow- up and treatment. Patient discharged home, stable and in no acute distress. Procedures Procedure Narrative LACERATION LOCATION: Vital R aspect of right hand second MCP joints LENGTH: 1.5 cm NUMBER OF STITCHES/SCOTT: 4 simple interrupted sutures REPAIR: The area of the laceration was prepped with Betadine and sterilely draped. The laceration was infiltrated with 1% lidocaine. The wound was copiously irrigated and explored without evidence of foreign body, tendon injury or neurovascular injury. The wound was closed using 4-0 Prolene. This was a single layer repair. A sterile dressing was applied. The patient was advised to keep the dressing clean and dry. Patient tolerated the procedure well. Diagnosis Primary Impression: Laceration of right hand Qualified Codes: S61.411A - Laceration without foreign body of right hand, initial encounter Referrals: Primary Care Physician Patient Instructions: Care For Your Stitches (ED), General Instructions, Laceration (ED) Additional Instructions: Keep area clean and dry Limit right hand activity to decrease risk of sutures coming undone Tylenol as directed nauseated for pain and inflammation Ice pack to area as needed to decrease pain Return to the emergency department or follow-up with primary care provider in 7- 10 days for suture removal Follow up with primary care provider within 2-4 days Return to the emergency department immediately with worsening of symptoms, particularly if reddened streaks up or down the affected extremity from the suture site, fever, numbness/tingling in the affected extremity, loss of sensation in the affected extremity, severe swelling of the affected Med/Other Pt SpecificInfo: No Meds Exist/No RX given Disposition: 01 DISCHARGE HOME Condition: Stable Izzy Tierney May 22, 2017 09:33
[2017-05-22] MEDS ORDERED: TETANUS/DIPHTHERIA TOXOID ADULT 0.5 ML VIAL IM ONE (09:45)
[2017-05-22] MEDS ORDERED: LIDOCAINE HCL 1% 50 ML VIAL INFIL ONE (09:45)
== END 2017-05-22 10:17 | disposition home or self-care (01) ==
LOC: PHEFT 09:15
DX: S61.411A Laceration without foreign body of right hand, initial encounter (principal); W25.XXXA Contact with sharp glass, initial encounter; Y93.G1 Activity, food preparation and clean up; Z23 Encounter for immunization
CPT/HCPCS: 12001; 90471; 90714

== ENCOUNTER 2017-08-11 09:53 | Emergency (ER) | payer MEDICARE ==
[~2017-08-11] VITALS: Ht 190.5 cm; Wt 109.0 kg
[2017-08-11 10:01] VITALS: BP 146/66; PULSE 70; RESP 16; TEMP 97.6; O2SAT 95
[2017-08-11] MEDS ORDERED: MAGICADU2 SWISH-SWAL (10:18)
--- NOTE | 2017-08-11 10:21 | PD ---
HPI Chief Complaint: ENT Complaint Time Seen by Provider: 10:09 Travel History International Travel<30 days: No Contact w/Intl Traveler<30days: No Traveled to known affect area: No History of Present Illness HPI 81-year-old male presents emergency department complaining of sore throat, mainly right-sided, for 3 days. Patient states that he went to his primary care physician who performed a throat swab and was negative for a strep throat. Patient states that he has had trouble swallowing because of the pain. Patient denies fever, chills, cough. Denies upper respiratory type symptoms. States he has never had this happen before. Patient denies history of antibiotic or autoimmune disorders. PFSH Past Medical History Arthritis: No Asthma: Yes Autoimmune Disease: No Blood Disorders: No Anxiety: No Depression: No Heart Rhythm Problems: No Cancer: No Cardiac Catheterization: Yes (DR FARLEY) Cardiovascular Problems: Yes (CAD, CARDIAC STENTS) High Cholesterol: Yes Chemotherapy: No Chest Pain: Yes Congestive Heart Failure: No COPD: No Cerebrovascular Accident: No Coronary Artery Disease: Yes Diabetes: No Diminished Hearing: No Endocrine: No Gastrointestinal Disorders: Yes (PAST HX GERD) GERD: Yes Glaucoma: No Genitourinary: Yes (FREQUENCY) Headaches: No Hepatitis: No Hiatal Hernia: No Heparin Induced Thrombocytopen: No Hypertension: No Immune Disorder: No Implanted Vascular Access Dvce: Yes Kidney Stones: No Musculoskeletal: Yes (LUMBAR DISCOMFORT) Neurologic: No Psychiatric: No Reproductive: No Respiratory: Yes (pulmonary fibrosis) Migraines: No Myocardial Infarction: Yes Radiation Therapy: No Renal Failure: No Seizures: No Sickle Cell Disease: No Sleep Apnea: No Thyroid Disease: No Triglycerides - High: Yes Ulcer: No PNEUMOCCOCAL Vaccine (Year): 1 Past Surgical History Abdominal Surgery: Yes (APPENDECTOMY, RIGHT INGUINAL HERNIA REPAIR, LAPROSCOPY WITH COLON RESECTIO) AICD: No Appendectomy: Yes (REMOTE PAST) Arteriovenous Shunt: No Body Medical Devices: x3 CARDIAC STENTS Cardiac Surgery: No Cholecystectomy: No Coronary Stent: Yes (X 3 IN 08/23, x 1> 03/2017) Ear Surgery: No Endocrine Surgery: No Eye Surgery: Yes (adrianna cataract surgery, LASIK) Genitourinary Surgery: No Gynecologic Surgery: No Insulin Pump: No Joint Replacement: No Neurologic Surgery: No Oral Surgery: No Pacemaker: No Thoracic Surgery: No Other Surgery: Yes (ABD HERNIA REPAIR AND APPY REMOTE PAST) Social History Alcohol Use: No (QUIT) Tobacco Use: No Substance Use: No Allergies-Medications (Allergen,Severity, Reaction): Coded Allergies: No Known Allergies (Verified Adverse Reaction, Unknown, 08/11/17) Reported Meds & Prescriptions Reported Meds & Active Scripts Active Magic Mouthwash Adult Liq (Multi-Ingredient Mouthwash/Gargle) 120 Ml Susp 10 Ml SWISH-SWAL ACHS 7 Days Each 5mL contains: Nystatin 200,000units, Diphenhydramine 4.25mg, Viscous Lidocaine 10mg, Herbert syrup 0.8 mL 1:1:1 ratio mix Finasteride 5 Mg Tab 5 Mg PO DAILY Do not crush. Reported Plavix (Clopidogrel Bisulfate) 75 Mg Tab 75 Mg PO DAILY Crestor (Rosuvastatin Calcium) 10 Mg Tab 10 Mg PO DAILY Review of Systems Except as stated in HPI: all other systems reviewed are Neg Physical Exam Narrative GENERAL: Well-nourished in no apparent distress SKIN: Focused skin assessment warm/dry. HEAD: Atraumatic. Normocephalic. EYES: Pupils equal and round. No scleral icterus. No injection or drainage. ENT: No nasal bleeding or discharge. Mucous membranes pink and moist. Tongue with geographic white patches, posterior pharynx with white round patches, mild erythema without bleeding NECK: Trachea midline. No JVD. No lymphadenopathy CARDIOVASCULAR: Regular rate and rhythm. No murmur appreciated. RESPIRATORY: No accessory muscle use. Clear to auscultation. Breath sounds equal bilaterally. MUSCULOSKELETAL: No obvious deformities. No clubbing. No cyanosis. No edema. NEUROLOGICAL: Awake and alert. No obvious cranial nerve deficits. Motor grossly within normal limits. Normal speech. PSYCHIATRIC: Appropriate mood and affect; insight and judgment normal. Data Data Last Documented VS Vital Signs Date Time Temp Pulse Resp B/P (MAP) Pulse Ox O2 Delivery O2 Flow Rate FiO2 08/11/17 10:01 97.6 70 16 146/66 (92) 95 Orders Orders Ed Discharge Order (08/11/17 10:21) MDM Medical Decision Making Medical Screen Exam Complete: Yes Emergency Medical Condition: Yes Differential Diagnosis Strep pharyngitis, viral pharyngitis, oral candidiasis Narrative Course 81-year-old male presents emergency department complaining of sore throat, mainly right-sided, for 3 days. Patient states that he went to his primary care physician who performed a throat swab and was negative for a strep throat. Patient states that he has had trouble swallowing because of the pain. Patient denies fever, chills, cough. Denies upper respiratory type symptoms. States he has never had this happen before. Patient denies history of antibiotic or autoimmune disorders. Vital signs stable. Physical exam finds consistent with oral candidiasis without bulging or tonsillar pillars or tonsillar hypertrophy. Patient was discharged with Magic mouthwash. Advised patient to follow up with his primary care physician within one week to ensure resolution. Advised patient to continue good oral intake to include liquids and healthy diet. Patient should return for worsening or persistent symptoms. Diagnosis Primary Impression: Oral candidiasis Referrals: Primary Care Physician Patient Instructions: General Instructions, Oral Candidiasis (ED) Additional Instructions: Take medication as prescribed. Follow up with your primary care physician within 2-3 days. If your symptoms persist or worsen, return to the emergency department. Ensure you have adequate fluid intake. Ensure that you chew food well and use caution with swallowing. Scripts Gqodjmkq-Umfjeudprlwotyh-Jsdxmrsat Liq (Magic Mouthwash Adult Liq) 120 Ml Susp 10 ML SWISH-SWAL ACHS for Sore Throat for 7 Days, #120 ML 0 Refills Each 5mL contains: Nystatin 200,000units, Diphenhydramine 4.25mg, Viscous Lidocaine 10mg, Herbert syrup 0.8 mL 1:1:1 ratio mix Prov: Rachel Vickers 08/11/17 Disposition: 01 DISCHARGE HOME Condition: Stable Rachel Vickers Aug 11, 2017 10:20
== END 2017-08-11 10:28 | disposition home or self-care (01) ==
LOC: PHEFT 09:53
DX: B37.0 Candidal stomatitis (principal); E78.00 Pure hypercholesterolemia, unspecified; I25.10 Atherosclerotic heart disease of native coronary artery without angina pectoris; K21.9 Gastro-esophageal reflux disease without esophagitis; J45.909 Unspecified asthma, uncomplicated; J84.10 Pulmonary fibrosis, unspecified; I25.2 Old myocardial infarction; Z95.5 Presence of coronary angioplasty implant and graft
CPT/HCPCS: 99283

== ENCOUNTER → 2017-08-23 | Outpatient (CLI) | payer MEDICARE ==
[~2017-08-23] MED LIST changes: -ALBUAER3 INH; -ASPI-516 CHEW; +MAGICADU2 SWISH-SWAL; -VITA1000 PO; -VITA100T50; -VITA250T3 PO; -VITA400C5
[2017-08-23 13:35] LABS: BILIRUBIN, URINE NEG (NEG); BLOOD, URINE NEG (NEG); GLUCOSE,URINE NEG (NEG); KETONE, URINE NEG (NEG); MUCUS URINE FEW /lpf (OCC); NITRITE,URINE NEG (NEG); PH, URINE 6.5 (5.0-8.5); URINE COLOR YELLOW (YELLW/STRAW); URINE LEUKOCYTE ESTERASE NEG (NEG)
== END ==
LOC: PLAB 10:30
PROVIDERS: ATTEND Urology
DX: N39.0 Urinary tract infection, site not specified (principal)
CPT/HCPCS: 81001